=== PATIENT | male | born 1945 | race Caucasian/White ===

== ENCOUNTER 2020-12-30 10:20 | Inpatient (IN) | payer OTHER ==
[~2020-12-30 10:20] MED LIST: ALLOPURINOL300 MG PO; LISINOPRIL-HYDR1 TA1 PO; LOPRESSOR50 MG PO; PLAVIX 75MG TAB75 MG PO; PREDNISONE20 MG PO
[2020-12-30 11:55] VITALS: BP 132/79
[2020-12-30] MEDS ORDERED: ALBUTEROL2.5 MG/3 M IH (12:43)
[2020-12-30] MEDS ORDERED: NORVASC 5MG5 MG/TAB PO (12:44)
[2020-12-30] MEDS ORDERED: ASPIRIN E.C. 8181 MG PO (12:45)
[2020-12-30] MEDS ORDERED: LIPITOR 40MG TA40 MG PO (12:46)
[2020-12-30] MEDS ORDERED: ZESTRIL20 M1 PO (12:46)
[2020-12-30] MEDS ORDERED: PROTONIX TR40 M1 PO (12:47)
[2020-12-30 17:02] VITALS: BP 186/88
[2020-12-30 18:20] VITALS: BP 186/88
[2020-12-31 05:53] VITALS: BP 180/80
[2020-12-31 06:57] LABS: BASO # 0.07 (0.02-0.10); EOS # 0.16 (0.04-0.40); EOS % 2.1 % (0.0-4.0); HEMATOCRIT 49.6 % (42.0-52.0); HEMOGLOBIN 16.8 g/dL (13.5-18.0); LYMPH# 1.14 (1.50-4.00); MEAN CELL VOLUME 100 fl (78-100); MEAN CORPUSCULAR HEMOGLOBIN 34 pg (27-31); MEAN CORPUSCULAR HGB CONC 34 g/dL (33-37); MEAN PLATELET VOLUME 9.1 fl (7.4-10.4); MONO # 0.64 (0.20-0.80); NEU # 5.49 (1.40-6.50); PLATELET COUNT 202 K/mm3 (130-400); RED BLOOD COUNT 4.98 M/mm3 (4.20-5.60); RED CELL DISTRIBUTION WIDTH 12.9 % (11.5-14.5); WHITE BLOOD COUNT 7.5 K/mm3 (4.8-10.8)
[2020-12-31 07:12] LABS: ALBUMIN 3.5 g/dL (3.4-4.8)
[2020-12-31 07:13] LABS: POTASSIUM 3.7 mmol/L (3.5-5.1)
[2020-12-31 07:14] LABS: CALCIUM 8.9 mg/dL (8.3-10.5)
[2020-12-31 07:15] LABS: TOTAL PROTEIN 7.1 g/dL (6.2-8.1)
[2020-12-31 09:13] LABS: URINE APPEARANCE CLEAR; URINE BILIRUBIN NEGATIVE (NEGATIVE); URINE BLOOD TRACE (NEGATIVE); URINE COLOR YELLOW; URINE GLUCOSE NEGATIVE (NEGATIVE); URINE KETONE SMALL (NEGATIVE); URINE LEUKOCYTE ESTERASE NEGATIVE (NEGATIVE); URINE MUCUS PRESENT (NOT PRESENT); URINE NITRATE NEGATIVE (NEGATIVE); URINE PROTEIN(semi-quant) TRACE mg/dL (NEGATIVE); URINE UROBILINOGEN NORMAL (NORMAL)
[2020-12-31 12:04] VITALS: BP 148/87
[2021-01-01 05:57] VITALS: BP 147/84
[2021-01-01 17:12] VITALS: BP 169/90
[2021-01-02 05:10] VITALS: BP 163/95
[2021-01-02 08:45] VITALS: BP 157/97
[2021-01-02 17:33] VITALS: BP 151/94
[2021-01-03 04:59] VITALS: BP 165/83
[2021-01-03 17:12] VITALS: BP 164/89
[2021-01-04 02:27] VITALS: BP 104/69
[2021-01-04 06:13] VITALS: BP 163/97
[2021-01-04 16:53] VITALS: BP 150/80
[2021-01-05 05:53] VITALS: BP 135/79
[2021-01-05 17:30] VITALS: BP 150/96
[2021-01-06 06:10] VITALS: BP 141/84
[2021-01-06 15:36] VITALS: BP 133/79
[2021-01-07 05:49] VITALS: BP 124/83
[2021-01-07 17:13] VITALS: BP 127/76
[2021-01-08 06:20] VITALS: BP 137/86
[2021-01-08 16:08] VITALS: BP 121/78
[2021-01-09 05:57] VITALS: BP 128/74
[2021-01-09 17:14] VITALS: BP 144/82
[2021-01-10 06:07] VITALS: BP 133/84
[2021-01-10 17:44] VITALS: BP 115/66
[2021-01-11 05:45] VITALS: BP 138/78
[2021-01-11 15:46] VITALS: BP 131/76
[2021-01-12 05:31] VITALS: BP 148/80
[2021-01-12 14:54] VITALS: BP 127/76
[2021-01-13 05:56] VITALS: BP 120/71
[2021-01-13] MEDS ORDERED: CLOPIDOGREL PO (14:17)
[2021-01-13] MEDS ORDERED: RT ALBUTEROL CC18 GM IH (14:17)
[2021-01-13] MEDS ORDERED: NORVASC 10MG10 MG PO (14:18)
[2021-01-13] MEDS ORDERED: METOPROLOL SUCC25 M1 PO (14:18)
[2021-01-13] MEDS ORDERED: VITAMIN D325 MC1 PO (14:20)
[2021-01-13] MEDS ORDERED: DOCUSATE SOD100 MG PO (14:20)
[2021-01-13] MEDS ORDERED: HEALTHYLAX17 GM/Dose PO (14:20)
[2021-01-13] MEDS ORDERED: ZYLOPRIM 100MG100 MG PO (14:21)
[2021-01-13] MEDS ORDERED: Theragran PO (14:22)
[2021-01-13 16:44] VITALS: BP 129/76
[2021-01-14 06:20] VITALS: BP 143/79
== END 2021-01-14 14:21 | disposition home health service (06) | DRG 179 ==
LOC: MED/SURG 11:06
PROVIDERS: Physician Assistant; ADMIT Internal Medicine
DX: U07.1 COVID-19 (principal); I10 Essential (primary) hypertension; J44.9 Chronic obstructive pulmonary disease, unspecified; I71.4 Abdominal aortic aneurysm, without rupture; I73.9 Peripheral vascular disease, unspecified; M10.9 Gout, unspecified; F17.210 Nicotine dependence, cigarettes, uncomplicated; R53.81 Other malaise; Z79.82 Long term (current) use of aspirin; Z95.820 Peripheral vascular angioplasty status with implants and grafts; Z86.73 Personal history of transient ischemic attack (TIA), and cerebral infarction without residual deficits
CPT/HCPCS: J1650